=== PATIENT | female | born 1940 | race Caucasian/White ===

== ENCOUNTER → 2016-05-08 | Outpatient (CLI) | payer MEDICARE, OTHER | LOC: LAB 07:41 | DX: E11.9 Type 2 diabetes mellitus without complications (principal) ==

== ENCOUNTER → 2016-07-31 | Outpatient (CLI) | payer MEDICARE, OTHER | LOC: LAB 07:21 | DX: E11.9 Type 2 diabetes mellitus without complications (principal); E78.2 Mixed hyperlipidemia; I10 Essential (primary) hypertension ==

== ENCOUNTER → 2017-02-11 | Outpatient (CLI) | payer MEDICARE, OTHER ==
[2017-02-11 08:19] LABS: HEMATOCRIT 41.4 % (37.0-47.0); MEAN PLATELET VOLUME 10.7 fl (7.4-10.4); RED BLOOD COUNT 5.02 M/mm3 (4.10-5.30); RED CELL DISTRIBUTION WIDTH 12.9 % (11.5-14.5); WHITE BLOOD COUNT 7.8 K/mm3 (4.8-10.8)
[2017-02-11 08:28] LABS: ALBUMIN 4.2 g/dL (3.5-5.0); BUN/CREATININE RATIO 36.3 (6.0-26.0); CALCIUM 9.6 mg/dL (8.4-10.2); POTASSIUM 4.5 mmol/L (3.6-5.0); TOTAL PROTEIN 7.3 g/dL (6.3-8.2)
== END ==
LOC: LAB 07:47
PROVIDERS: Family Medicine
DX: E11.9 Type 2 diabetes mellitus without complications (principal); E78.2 Mixed hyperlipidemia; I10 Essential (primary) hypertension

== ENCOUNTER → 2017-08-12 | Outpatient (CLI) | payer MEDICARE, OTHER | LOC: LAB 07:58 | DX: E11.9 Type 2 diabetes mellitus without complications (principal) ==

== ENCOUNTER → 2017-12-24 | Outpatient (CLI) | payer MEDICARE, OTHER ==
[2017-12-24 07:59] LABS: HEMATOCRIT 34.3 % (37.0-47.0); HEMOGLOBIN 10.9 g/dL (12.5-16.0); MEAN PLATELET VOLUME 10.1 fl (7.4-10.4); RED BLOOD COUNT 4.47 M/mm3 (4.10-5.30); RED CELL DISTRIBUTION WIDTH 14.3 % (11.5-14.5); WHITE BLOOD COUNT 8.4 K/mm3 (4.8-10.8)
[2017-12-24 08:06] LABS: ALBUMIN 4.3 g/dL (3.5-5.0); CALCIUM 9.7 mg/dL (8.4-10.2); POTASSIUM 4.8 mmol/L (3.6-5.0); TOTAL BILIRUBIN 0.8 mg/dL (0.2-1.3); TOTAL PROTEIN 7.4 g/dL (6.3-8.2)
== END ==
LOC: LAB 07:35
PROVIDERS: Family Medicine
DX: E11.9 Type 2 diabetes mellitus without complications (principal); E78.2 Mixed hyperlipidemia; I10 Essential (primary) hypertension; D53.9 Nutritional anemia, unspecified

== ENCOUNTER → 2018-05-24 | Outpatient (CLI) | payer MEDICARE, OTHER | LOC: LAB 15:01 | DX: L02.519 Cutaneous abscess of unspecified hand (principal) ==

== ENCOUNTER → 2018-07-16 | Outpatient (CLI) | payer MEDICARE, OTHER ==
[2018-07-16 09:03] LABS: HEMATOCRIT 43.3 % (37.0-47.0); HEMOGLOBIN 14.4 g/dL (12.5-16.0); MEAN PLATELET VOLUME 10.6 fl (7.4-10.4); RED BLOOD COUNT 5.34 M/mm3 (4.10-5.30); RED CELL DISTRIBUTION WIDTH 13.9 % (11.5-14.5); WHITE BLOOD COUNT 6.2 K/mm3 (4.8-10.8)
[2018-07-16 09:19] LABS: ALBUMIN 4.4 g/dL (3.5-5.0); CALCIUM 8.9 mg/dL (8.4-10.2); TOTAL BILIRUBIN 0.8 mg/dL (0.2-1.3); TOTAL PROTEIN 7.4 g/dL (6.3-8.2)
== END ==
LOC: LAB 08:32
PROVIDERS: Family Medicine
DX: D53.9 Nutritional anemia, unspecified (principal); E78.2 Mixed hyperlipidemia; I10 Essential (primary) hypertension; E11.9 Type 2 diabetes mellitus without complications

== ENCOUNTER 2019-01-02 14:24 | Emergency (ER) | payer MEDICARE, OTHER ==
[~2019-01-02] VITALS: Wt 74.2 kg
[2019-01-02] MEDS ORDERED: LEVOTHYROXINE0.05 MG PO (14:44)
[2019-01-02] MEDS ORDERED: ATORVASTATIN CA20 MG PO (14:44)
[2019-01-02] MEDS ORDERED: METFORMIN HYD1000 MG PO (14:44)
[2019-01-02] MEDS ORDERED: HCTZ 25MG25 MG PO (14:44)
[2019-01-02] MEDS ORDERED: GLUCOTROL 5M5 MG/TAB PO (14:45)
[2019-01-02] MEDS ORDERED: ALENDRONATE SOD70 MG PO (14:45)
[2019-01-02] MEDS ORDERED: LISINOPRIL20 MG PO (14:45)
[2019-01-02 15:18] LABS: HEMATOCRIT 37.2 % (37.0-47.0); HEMOGLOBIN 12.8 g/dL (12.5-16.0); MEAN CELL VOLUME 80 fl (78-100); MEAN CORPUSCULAR HEMOGLOBIN 28 pg (27-31); MEAN CORPUSCULAR HGB CONC 34 g/dL (33-37); MEAN PLATELET VOLUME 10.3 fl (7.4-10.4); PLATELET COUNT 263 K/mm3 (130-400); RED BLOOD COUNT 4.63 M/mm3 (4.10-5.30); WHITE BLOOD COUNT 10.6 K/mm3 (4.8-10.8)
[2019-01-02 15:25] LABS: BAND 2 % (0-10); LYMPHOCYTE 2 % (20-51); MONOCYTE 3 % (3-10); NEUTROPHILS 92 % (42-75)
[2019-01-02 15:26] LABS: ALBUMIN 3.3 g/dL (3.4-4.8); POTASSIUM 3.8 mmol/L (3.5-5.1)
[2019-01-02 15:27] LABS: CALCIUM 8.5 mg/dL (8.3-10.5)
[2019-01-02 15:28] LABS: TOTAL PROTEIN 6.9 g/dL (6.2-8.1)
[2019-01-02 15:30] LABS: TOTAL BILIRUBIN 0.7 mg/dL (0.2-1.2)
[2019-01-02 17:13] LABS: URINE APPEARANCE HAZY; URINE BILIRUBIN NEGATIVE (NEGATIVE); URINE BLOOD NEGATIVE (NEGATIVE); URINE COLOR YELLOW; URINE GLUCOSE NEGATIVE (NEGATIVE); URINE KETONE NEGATIVE (NEGATIVE); URINE LEUKOCYTE ESTERASE NEGATIVE (NEGATIVE); URINE NITRATE NEGATIVE (NEGATIVE); URINE PROTEIN(semi-quant) TRACE mg/dL (NEGATIVE); URINE UROBILINOGEN NORMAL (NORMAL); URINE WBC 0-1 /hpf (0-3)
[2019-01-02 19:54] VITALS: BP 114/74
[2019-01-04] MEDS ORDERED: LEVAQUIN 750MG750 M1 PO (08:41)
[2019-01-04] MEDS ORDERED: FLAGYL500 M1 PO (08:42)
== END 2019-01-02 19:50 | disposition other institution (70) ==
LOC: ED 14:24
PROVIDERS: Family Medicine
DX: K63.2 Fistula of intestine (principal); E11.65 Type 2 diabetes mellitus with hyperglycemia; E11.9 Type 2 diabetes mellitus without complications; I10 Essential (primary) hypertension; Z87.442 Personal history of urinary calculi; Z90.710 Acquired absence of both cervix and uterus; Z90.49 Acquired absence of other specified parts of digestive tract; Z98.890 Other specified postprocedural states; Z79.84 Long term (current) use of oral hypoglycemic drugs
CPT/HCPCS: J3490; J7030; Q9967

== ENCOUNTER → 2019-01-31 | Outpatient (CLI) | payer MEDICARE, OTHER ==
[2019-01-04 06:14] VITALS: BP 126/67
[~2019-01-31] MED LIST: ALENDRONATE SOD70 MG PO; ATORVASTATIN CA20 MG PO; FLAGYL500 M1 PO; GLUCOTROL 5M5 MG/TAB PO; HCTZ 25MG25 MG PO; LEVAQUIN 750MG750 M1 PO; LEVOTHYROXINE0.05 MG PO; LISINOPRIL20 MG PO; METFORMIN HYD1000 MG PO
== END ==
LOC: RAD 09:23
DX: K63.2 Fistula of intestine (principal); K57.30 Diverticulosis of large intestine without perforation or abscess without bleeding; M51.36 Other intervertebral disc degeneration, lumbar region; M46.86 Other specified inflammatory spondylopathies, lumbar region
CPT/HCPCS: Q9967

== ENCOUNTER 2019-03-21 11:00 | Outpatient (RCR) | payer MEDICARE, OTHER ==
[2019-01-04 06:14] VITALS: BP 126/67
== END 2019-04-18 | disposition still patient (30) ==
LOC: PT
DX: R53.81 Other malaise (principal)

== ENCOUNTER → 2019-08-29 | Outpatient (CLI) | payer MEDICARE, OTHER ==
[2019-01-04 06:14] VITALS: BP 126/67
[2019-08-29 09:24] LABS: HEMATOCRIT 44.6 % (37.0-47.0); MEAN PLATELET VOLUME 10.4 fl (7.4-10.4); RED BLOOD COUNT 5.4 M/mm3 (4.10-5.30); RED CELL DISTRIBUTION WIDTH 13.5 % (11.5-14.5)
[2019-08-29 09:45] LABS: ALBUMIN 4.4 g/dL (3.4-4.8); POTASSIUM 4.5 mmol/L (3.5-5.1)
[2019-08-29 09:46] LABS: CALCIUM 9.9 mg/dL (8.3-10.5)
[2019-08-29 09:48] LABS: TOTAL PROTEIN 7.4 g/dL (6.2-8.1)
[2019-08-29 09:50] LABS: TOTAL BILIRUBIN 1.1 mg/dL (0.2-1.2)
== END ==
LOC: LAB 08:55
PROVIDERS: Family Medicine
DX: E11.9 Type 2 diabetes mellitus without complications (principal); I10 Essential (primary) hypertension; E78.2 Mixed hyperlipidemia

== ENCOUNTER → 2019-10-18 | Outpatient (CLI) | payer MEDICARE, OTHER ==
[2019-01-04 06:14] VITALS: BP 126/67
== END ==
LOC: AMSURD 08:30
DX: Z01.818 Encounter for other preprocedural examination (principal)

== ENCOUNTER → 2019-11-09 | Day surgery (SDC) | payer MEDICARE, OTHER ==
[2019-01-04 06:14] VITALS: BP 126/67
== END ==
LOC: MSO 07:28
DX: E11.36 Type 2 diabetes mellitus with diabetic cataract (principal); H25.811 Combined forms of age-related cataract, right eye; M19.90 Unspecified osteoarthritis, unspecified site; K21.9 Gastro-esophageal reflux disease without esophagitis; E78.5 Hyperlipidemia, unspecified; Z85.3 Personal history of malignant neoplasm of breast; Z90.710 Acquired absence of both cervix and uterus; Z79.82 Long term (current) use of aspirin; Z79.84 Long term (current) use of oral hypoglycemic drugs
CPT/HCPCS: 00142; J0171; J2250; V2632

== ENCOUNTER 2020-03-03 09:29 | Emergency (ER) | payer MEDICARE, OTHER ==
[2020-03-03] MEDS ORDERED: MELOXICAM7.5 MG PO (09:53)
[2020-03-03 10:43] LABS: EOS # 0.1 (0.04-0.40); EOS % 0.7 % (1.0-5.0); HEMATOCRIT 42.9 % (37.0-47.0); HEMOGLOBIN 14.3 g/dL (12.5-16.0); LYMPH# 1.8 (1.50-4.00); MEAN CELL VOLUME 83 fl (78-100); MEAN CORPUSCULAR HEMOGLOBIN 28 pg (27-31); MEAN CORPUSCULAR HGB CONC 33 g/dL (33-37); MEAN PLATELET VOLUME 11.5 fl (7.4-10.4); MONO # 0.8 (0.20-0.80); PLATELET COUNT 264 K/mm3 (130-400); RED CELL DISTRIBUTION WIDTH 13.3 % (11.5-14.5); WHITE BLOOD COUNT 9.7 K/mm3 (4.8-10.8)
[2020-03-03 10:59] LABS: ALBUMIN 4.3 g/dL (3.4-4.8)
[2020-03-03 11:00] LABS: CALCIUM 8.6 mg/dL (8.3-10.5)
[2020-03-03 11:03] LABS: TOTAL BILIRUBIN 0.9 mg/dL (0.2-1.2)
[2020-03-03 11:13] LABS: D-DIMER 0.77 mg/L FEU (0.15-0.50)
[2020-03-03 12:20] LABS: POTASSIUM 4.7 mmol/L (3.5-5.1)
[2020-03-03 15:52] LABS: PARTIAL THROMBOPLASTIN TIME 24.1 SECONDS (21.0-32.0); PROTHROMBIN TIME 9.7 SECONDS (9.0-12.0)
[2020-03-03 17:07] VITALS: BP 138/92
== END 2020-03-03 17:35 | disposition short-term general hospital (02) ==
LOC: ED 09:29
PROVIDERS: Family Medicine
DX: R06.00 Dyspnea, unspecified (principal); I35.0 Nonrheumatic aortic (valve) stenosis; I47.1 Supraventricular tachycardia; R74.8 Abnormal levels of other serum enzymes; E11.9 Type 2 diabetes mellitus without complications; I10 Essential (primary) hypertension; Z20.828 Contact with and (suspected) exposure to other viral communicable diseases; Z79.84 Long term (current) use of oral hypoglycemic drugs
CPT/HCPCS: J1644

== ENCOUNTER → 2020-04-27 | Outpatient (CLI) | payer MEDICARE, OTHER ==
[~2020-04-27] MED LIST changes: +MELOXICAM7.5 MG PO
[2020-04-27 12:36] LABS: HEMATOCRIT 38.5 % (37.0-47.0); HEMOGLOBIN 11.9 g/dL (12.5-16.0); RED BLOOD COUNT 4.24 M/mm3 (4.10-5.30); WHITE BLOOD COUNT 6.3 K/mm3 (4.8-10.8)
[2020-04-27 12:37] LABS: MEAN CELL VOLUME 91 fl (78-100); MEAN CORPUSCULAR HEMOGLOBIN 28 pg (27-31); MEAN CORPUSCULAR HGB CONC 31 g/dL (33-37); MEAN PLATELET VOLUME 10.3 fl (7.4-10.4); PLATELET COUNT 404 K/mm3 (130-400); RED CELL DISTRIBUTION WIDTH 16.4 % (11.5-14.5)
[2020-04-27 12:38] LABS: BAND 4 % (0-10); LYMPHOCYTE 11 % (20-51); MONOCYTE 10 % (3-10); NEUTROPHILS 73 % (42-75)
[2020-04-27 12:41] LABS: ALBUMIN 3.8 g/dL (3.4-4.8); CALCIUM 8.4 mg/dL (8.3-10.5); POTASSIUM 4.1 mmol/L (3.5-5.1); TOTAL BILIRUBIN 1.4 mg/dL (0.2-1.2); TOTAL PROTEIN 6.4 g/dL (6.2-8.1)
== END ==
LOC: LAB 11:49
PROVIDERS: Family Medicine
DX: Z86.79 Personal history of other diseases of the circulatory system (principal)

== ENCOUNTER 2020-05-01 15:38 | Emergency (ER) | payer MEDICARE, OTHER ==
[2020-05-01 16:54] LABS: HEMOGLOBIN 12.5 g/dL (12.5-16.0); MEAN CELL VOLUME 91 fl (78-100); MEAN CORPUSCULAR HEMOGLOBIN 28 pg (27-31); MEAN CORPUSCULAR HGB CONC 31 g/dL (33-37); MEAN PLATELET VOLUME 10.8 fl (7.4-10.4); PLATELET COUNT 418 K/mm3 (130-400); RED BLOOD COUNT 4.42 M/mm3 (4.10-5.30); RED CELL DISTRIBUTION WIDTH 16.4 % (11.5-14.5); WHITE BLOOD COUNT 5.5 K/mm3 (4.8-10.8)
[2020-05-01 17:02] LABS: LYMPHOCYTE 12 % (20-51); MONOCYTE 12 % (3-10); NEUTROPHILS 73 % (42-75)
[2020-05-01 17:03] LABS: POTASSIUM 4.5 mmol/L (3.5-5.1)
[2020-05-01 17:04] LABS: CALCIUM 8.1 mg/dL (8.3-10.5)
[2020-05-01 17:15] LABS: D-DIMER 0.79 mg/L FEU (0.15-0.50)
[2020-05-01 17:17] LABS: TROPONIN-I 0.22 ng/mL (<0.030)
[2020-05-01 18:10] LABS: URINE APPEARANCE CLEAR; URINE BILIRUBIN NEGATIVE (NEGATIVE); URINE BLOOD NEGATIVE (NEGATIVE); URINE COLOR YELLOW; URINE GLUCOSE NEGATIVE (NEGATIVE); URINE KETONE NEGATIVE (NEGATIVE); URINE LEUKOCYTE ESTERASE NEGATIVE (NEGATIVE); URINE NITRATE NEGATIVE (NEGATIVE); URINE PROTEIN(semi-quant) 1+ mg/dL (NEGATIVE); URINE UROBILINOGEN NORMAL (NORMAL); URINE WBC 0-1 /hpf (0-3)
[2020-05-01 19:18] VITALS: BP 90/46
== END 2020-05-01 19:45 | disposition short-term general hospital (02) ==
LOC: ED 15:38
PROVIDERS: Nurse Practitioner Family
DX: J96.00 Acute respiratory failure, unspecified whether with hypoxia or hypercapnia (principal); I35.8 Other nonrheumatic aortic valve disorders; I50.9 Heart failure, unspecified; J90 Pleural effusion, not elsewhere classified; I25.10 Atherosclerotic heart disease of native coronary artery without angina pectoris; E11.9 Type 2 diabetes mellitus without complications; E78.5 Hyperlipidemia, unspecified; E03.9 Hypothyroidism, unspecified; Z20.822 Contact with and (suspected) exposure to COVID-19; Z87.442 Personal history of urinary calculi; Z85.3 Personal history of malignant neoplasm of breast; Z79.890 Hormone replacement therapy; Z79.84 Long term (current) use of oral hypoglycemic drugs
CPT/HCPCS: J1940; J2250; J2270; J3010; J3370; J7030; J7040; J7050; J7060; Q9967

== ENCOUNTER → 2020-06-11 | Outpatient (CLI) | payer MEDICARE, OTHER ==
[~2020-06-11] MED LIST changes: +ADULT LOW DOSE81 MG PO; +CLOPIDOGREL PO; +FARXIGA10 MG PO; +LIPITOR 40MG TA40 MG PO; +NEURONTIN300 M1 PO; +NITROSTAT0.4 M1 SL; +TOPROL XL 25MG25 MG PO
[2020-06-11 11:27] LABS: EOS # 0.1 (0.04-0.40); EOS % 1.3 % (1.0-5.0); HEMATOCRIT 36.9 % (37.0-47.0); HEMOGLOBIN 11.2 g/dL (12.5-16.0); LYMPH# 1.4 (1.50-4.00); MEAN CELL VOLUME 87 fl (78-100); MEAN CORPUSCULAR HEMOGLOBIN 27 pg (27-31); MEAN CORPUSCULAR HGB CONC 30 g/dL (33-37); MEAN PLATELET VOLUME 9.6 fl (7.4-10.4); MONO # 0.8 (0.20-0.80); NEU # 7.7 (1.40-6.50); PLATELET COUNT 333 K/mm3 (130-400); RED BLOOD COUNT 4.22 M/mm3 (4.10-5.30); RED CELL DISTRIBUTION WIDTH 15.7 % (11.5-14.5)
[2020-06-11 11:31] LABS: POTASSIUM 4.9 mmol/L (3.5-5.1)
[2020-06-11 11:32] LABS: ALBUMIN 3.7 g/dL (3.4-4.8)
[2020-06-11 11:33] LABS: CALCIUM 9.6 mg/dL (8.3-10.5)
[2020-06-11 11:36] LABS: TOTAL BILIRUBIN 0.5 mg/dL (0.2-1.2); URINE APPEARANCE CLEAR; URINE BILIRUBIN NEGATIVE (NEGATIVE); URINE BLOOD NEGATIVE (NEGATIVE); URINE COLOR YELLOW; URINE GLUCOSE NEGATIVE (NEGATIVE); URINE KETONE NEGATIVE (NEGATIVE); URINE LEUKOCYTE ESTERASE NEGATIVE (NEGATIVE); URINE NITRATE NEGATIVE (NEGATIVE); URINE PROTEIN(semi-quant) NEGATIVE (NEGATIVE); URINE UROBILINOGEN NORMAL (NORMAL)
== END ==
LOC: LAB 10:57
PROVIDERS: Family Medicine
DX: N17.9 Acute kidney failure, unspecified (principal); E03.4 Atrophy of thyroid (acquired); E11.9 Type 2 diabetes mellitus without complications; D64.9 Anemia, unspecified; N39.0 Urinary tract infection, site not specified

== ENCOUNTER → 2020-06-26 | Outpatient (CLI) | payer MEDICARE, OTHER | LOC: VAS 10:31 → RAD 11:00 | DX: I73.9 Peripheral vascular disease, unspecified (principal) ==

== ENCOUNTER → 2020-07-16 | Outpatient (CLI) | payer MEDICARE, OTHER ==
[2020-07-16 12:43] LABS: EOS # 0.1 (0.04-0.40); EOS % 0.4 % (1.0-5.0); HEMATOCRIT 40.2 % (37.0-47.0); HEMOGLOBIN 12.7 g/dL (12.5-16.0); LYMPH# 1.9 (1.50-4.00); MEAN CELL VOLUME 78 fl (78-100); MEAN CORPUSCULAR HEMOGLOBIN 25 pg (27-31); MEAN CORPUSCULAR HGB CONC 32 g/dL (33-37); MEAN PLATELET VOLUME 9.6 fl (7.4-10.4); MONO # 0.9 (0.20-0.80); PLATELET COUNT 341 K/mm3 (130-400); RED BLOOD COUNT 5.17 M/mm3 (4.10-5.30); RED CELL DISTRIBUTION WIDTH 15.2 % (11.5-14.5)
[2020-07-16 12:50] LABS: ALBUMIN 3.6 g/dL (3.4-4.8)
[2020-07-16 12:52] LABS: CALCIUM 8.8 mg/dL (8.3-10.5)
[2020-07-16 12:53] LABS: TOTAL PROTEIN 7.2 g/dL (6.2-8.1)
[2020-07-16 12:55] LABS: TOTAL BILIRUBIN 0.5 mg/dL (0.2-1.2)
== END ==
LOC: VAS 09:45 → RAD 09:45 → LAB 10:24 → VAS 10:24
PROVIDERS: Family Medicine
DX: M79.672 Pain in left foot (principal)

== ENCOUNTER → 2020-08-20 | Outpatient (CLI) | payer MEDICARE, OTHER ==
[2020-08-20 13:11] LABS: ALBUMIN 3.6 g/dL (3.4-4.8); POTASSIUM 3.9 mmol/L (3.5-5.1)
[2020-08-20 13:12] LABS: CALCIUM 8.8 mg/dL (8.3-10.5)
[2020-08-20 13:14] LABS: TOTAL PROTEIN 6.7 g/dL (6.2-8.1)
[2020-08-20 13:15] LABS: TOTAL BILIRUBIN 0.4 mg/dL (0.2-1.2)
[2020-08-20 13:19] LABS: BASO # 0.02 (0.02-0.10); EOS # 0.24 (0.04-0.40); EOS % 3.6 % (1.0-5.0); HEMATOCRIT 39.2 % (37.0-47.0); HEMOGLOBIN 12.7 g/dL (12.5-16.0); LYMPH# 1.63 (1.50-4.00); MEAN CELL VOLUME 76 fl (78-100); MEAN CORPUSCULAR HEMOGLOBIN 25 pg (27-31); MEAN CORPUSCULAR HGB CONC 32 g/dL (33-37); MEAN PLATELET VOLUME 9.9 fl (7.4-10.4); MONO # 0.65 (0.20-0.80); NEU # 4.05 (1.40-6.50); PLATELET COUNT 267 K/mm3 (130-400); RED BLOOD COUNT 5.17 M/mm3 (4.10-5.30); RED CELL DISTRIBUTION WIDTH 15.7 % (11.5-14.5); WHITE BLOOD COUNT 6.6 K/mm3 (4.8-10.8)
== END ==
LOC: LAB 12:34
PROVIDERS: Family Medicine
DX: E11.9 Type 2 diabetes mellitus without complications (principal); E03.4 Atrophy of thyroid (acquired); D64.9 Anemia, unspecified; E78.5 Hyperlipidemia, unspecified; I10 Essential (primary) hypertension

== ENCOUNTER 2020-08-25 20:03 | Emergency (ER) | payer MEDICARE, OTHER ==
[~2020-08-25 20:03] MED LIST changes: -ADULT LOW DOSE81 MG PO; -CLOPIDOGREL PO; -FARXIGA10 MG PO; -LIPITOR 40MG TA40 MG PO; -NEURONTIN300 M1 PO; -NITROSTAT0.4 M1 SL; -TOPROL XL 25MG25 MG PO
[2020-08-25] MEDS ORDERED: CLOPIDOGREL PO (20:26)
[2020-08-25] MEDS ORDERED: TOPROL XL 25MG25 MG PO (20:27)
[2020-08-25] MEDS ORDERED: LIPITOR 40MG TA40 MG PO (20:28)
[2020-08-25] MEDS ORDERED: NITROSTAT0.4 M1 SL (20:28)
[2020-08-25] MEDS ORDERED: ADULT LOW DOSE81 MG PO (20:31)
[2020-08-25] MEDS ORDERED: NEURONTIN300 M1 PO (20:33)
[2020-08-25 21:00] LABS: BASO # 0.02 (0.02-0.10); EOS # 0.12 (0.04-0.40); EOS % 1.2 % (1.0-5.0); HEMATOCRIT 38.7 % (37.0-47.0); HEMOGLOBIN 12.9 g/dL (12.5-16.0); LYMPH# 1.34 (1.50-4.00); MEAN CELL VOLUME 75 fl (78-100); MEAN CORPUSCULAR HEMOGLOBIN 25 pg (27-31); MEAN CORPUSCULAR HGB CONC 33 g/dL (33-37); MEAN PLATELET VOLUME 9.5 fl (7.4-10.4); MONO # 0.72 (0.20-0.80); NEU # 7.59 (1.40-6.50); PLATELET COUNT 264 K/mm3 (130-400); RED BLOOD COUNT 5.18 M/mm3 (4.10-5.30); RED CELL DISTRIBUTION WIDTH 15.9 % (11.5-14.5); WHITE BLOOD COUNT 9.8 K/mm3 (4.8-10.8)
[2020-08-25 21:10] LABS: ALBUMIN 3.8 g/dL (3.4-4.8); POTASSIUM 4.2 mmol/L (3.5-5.1)
[2020-08-25 21:11] LABS: CALCIUM 8.6 mg/dL (8.3-10.5)
[2020-08-25 21:12] LABS: TOTAL PROTEIN 7.2 g/dL (6.2-8.1)
[2020-08-25 21:14] LABS: TOTAL BILIRUBIN 0.7 mg/dL (0.2-1.2)
[2020-08-25 21:39] LABS: PARTIAL THROMBOPLASTIN TIME 23.2 SECONDS (21.0-32.0); PROTHROMBIN TIME 9.8 SECONDS (9.0-12.0)
[2020-08-25 21:45] LABS: URINE APPEARANCE CLEAR; URINE BILIRUBIN NEGATIVE (NEGATIVE); URINE BLOOD TRACE (NEGATIVE); URINE COLOR STRAW; URINE GLUCOSE NEGATIVE (NEGATIVE); URINE KETONE NEGATIVE (NEGATIVE); URINE LEUKOCYTE ESTERASE NEGATIVE (NEGATIVE); URINE NITRATE NEGATIVE (NEGATIVE); URINE PROTEIN(semi-quant) 1+ mg/dL (NEGATIVE); URINE UROBILINOGEN NORMAL (NORMAL)
[2020-08-25 21:47] LABS: URINE WBC 0-1 /hpf (0-3)
[2020-08-25 23:27] VITALS: BP 156/82
== END 2020-08-25 23:27 | disposition short-term general hospital (02) ==
LOC: ED 20:03
PROVIDERS: Family Medicine
DX: I63.9 Cerebral infarction, unspecified (principal); E11.40 Type 2 diabetes mellitus with diabetic neuropathy, unspecified; I10 Essential (primary) hypertension; I25.10 Atherosclerotic heart disease of native coronary artery without angina pectoris; E78.5 Hyperlipidemia, unspecified; E03.9 Hypothyroidism, unspecified; Z79.890 Hormone replacement therapy; Z79.02 Long term (current) use of antithrombotics/antiplatelets; Z79.899 Other long term (current) drug therapy; Z79.82 Long term (current) use of aspirin; Z79.84 Long term (current) use of oral hypoglycemic drugs

== ENCOUNTER 2020-08-29 15:55 | Emergency (ER) | payer MEDICARE, OTHER ==
[~2020-08-29 15:55] MED LIST changes: +ADULT LOW DOSE81 MG PO; +CLOPIDOGREL PO; +LIPITOR 40MG TA40 MG PO; +NEURONTIN300 M1 PO; +NITROSTAT0.4 M1 SL; +TOPROL XL 25MG25 MG PO
[2020-08-29] MEDS ORDERED: FARXIGA10 MG PO (16:04)
[2020-08-29 16:26] LABS: BASO # 0.01 (0.02-0.10); EOS # 0.19 (0.04-0.40); EOS % 2.5 % (1.0-5.0); HEMATOCRIT 38.9 % (37.0-47.0); HEMOGLOBIN 12.5 g/dL (12.5-16.0); LYMPH# 1.65 (1.50-4.00); MEAN CELL VOLUME 76 fl (78-100); MEAN CORPUSCULAR HEMOGLOBIN 24 pg (27-31); MEAN CORPUSCULAR HGB CONC 32 g/dL (33-37); MEAN PLATELET VOLUME 9.5 fl (7.4-10.4); MONO # 0.63 (0.20-0.80); NEU # 5.09 (1.40-6.50); PLATELET COUNT 317 K/mm3 (130-400); RED BLOOD COUNT 5.15 M/mm3 (4.10-5.30); WHITE BLOOD COUNT 7.6 K/mm3 (4.8-10.8)
[2020-08-29 17:06] LABS: URINE APPEARANCE HAZY; URINE BILIRUBIN 1+ (NEGATIVE); URINE BLOOD NEGATIVE (NEGATIVE); URINE COLOR YELLOW; URINE KETONE NEGATIVE (NEGATIVE); URINE LEUKOCYTE ESTERASE NEGATIVE (NEGATIVE); URINE NITRATE NEGATIVE (NEGATIVE); URINE PROTEIN(semi-quant) NEGATIVE (NEGATIVE); URINE UROBILINOGEN NORMAL (NORMAL); URINE WBC 0-1 /hpf (0-3)
[2020-08-29 17:13] LABS: ALBUMIN 3.8 g/dL (3.4-4.8); POTASSIUM 4.3 mmol/L (3.5-5.1)
[2020-08-29 17:15] LABS: CALCIUM 8.6 mg/dL (8.3-10.5)
[2020-08-29 17:16] LABS: TOTAL PROTEIN 6.9 g/dL (6.2-8.1)
[2020-08-29 17:18] LABS: TOTAL BILIRUBIN 0.6 mg/dL (0.2-1.2)
[2020-08-29 17:41] VITALS: BP 141/78
== END 2020-08-29 17:49 | disposition home or self-care (01) ==
LOC: ED 15:55
PROVIDERS: Physician Assistant
DX: R53.81 Other malaise (principal); I25.10 Atherosclerotic heart disease of native coronary artery without angina pectoris; I10 Essential (primary) hypertension; E78.5 Hyperlipidemia, unspecified; E03.9 Hypothyroidism, unspecified; E11.40 Type 2 diabetes mellitus with diabetic neuropathy, unspecified; Z79.82 Long term (current) use of aspirin; Z79.890 Hormone replacement therapy; Z79.84 Long term (current) use of oral hypoglycemic drugs; Z79.899 Other long term (current) drug therapy; Z79.02 Long term (current) use of antithrombotics/antiplatelets

== ENCOUNTER → 2020-12-24 | Outpatient (CLI) | payer MEDICARE, OTHER ==
[~2020-12-24] MED LIST changes: +FARXIGA10 MG PO
[2020-12-24 11:32] LABS: BASO # 0.02 K/mm3 (0.02-0.10); EOS % 1.3 % (1.0-5.0); HEMATOCRIT 44.2 % (37.0-47.0); HEMOGLOBIN 14.1 g/dL (12.5-16.0); LYMPH# 1.52 K/mm3 (1.50-4.00); MEAN CELL VOLUME 82 fl (78-100); MEAN CORPUSCULAR HEMOGLOBIN 26 pg (27-31); MEAN CORPUSCULAR HGB CONC 32 g/dL (33-37); MEAN PLATELET VOLUME 10.4 fl (7.4-10.4); MONO # 0.56 K/mm3 (0.20-0.80); NEU # 5.42 K/mm3 (1.40-6.50); PLATELET COUNT 255 K/mm3 (130-400); RED BLOOD COUNT 5.38 M/mm3 (4.10-5.30); RED CELL DISTRIBUTION WIDTH 13.5 % (11.5-14.5); WHITE BLOOD COUNT 7.6 K/mm3 (4.8-10.8)
[2020-12-24 11:40] LABS: ALBUMIN 3.8 g/dL (3.4-4.8); POTASSIUM 4.2 mmol/L (3.5-5.1)
[2020-12-24 11:41] LABS: CALCIUM 9.3 mg/dL (8.3-10.5)
[2020-12-24 11:42] LABS: TOTAL PROTEIN 6.7 g/dL (6.2-8.1)
[2020-12-24 11:44] LABS: TOTAL BILIRUBIN 0.5 mg/dL (0.2-1.2)
== END ==
LOC: LAB 11:05
PROVIDERS: Family Medicine
DX: Z00.00 Encounter for general adult medical examination without abnormal findings (principal); E03.4 Atrophy of thyroid (acquired); E78.5 Hyperlipidemia, unspecified; E11.9 Type 2 diabetes mellitus without complications; E55.9 Vitamin D deficiency, unspecified

== ENCOUNTER → 2021-04-22 | Outpatient (CLI) | payer MEDICARE, OTHER ==
[2021-04-22 11:28] LABS: BASO # 0.04 K/mm3 (0.02-0.10); EOS # 0.09 K/mm3 (0.04-0.40); EOS % 0.9 % (1.0-5.0); HEMATOCRIT 45.8 % (37.0-47.0); HEMOGLOBIN 14.8 g/dL (12.5-16.0); LYMPH# 1.95 K/mm3 (1.50-4.00); MEAN CELL VOLUME 82 fl (78-100); MEAN CORPUSCULAR HEMOGLOBIN 27 pg (27-31); MEAN CORPUSCULAR HGB CONC 32 g/dL (33-37); MONO # 0.61 K/mm3 (0.20-0.80); NEU # 6.88 K/mm3 (1.40-6.50); PLATELET COUNT 310 K/mm3 (130-400); RED BLOOD COUNT 5.58 M/mm3 (4.10-5.30); RED CELL DISTRIBUTION WIDTH 14.1 % (11.5-14.5); WHITE BLOOD COUNT 9.6 K/mm3 (4.8-10.8)
[2021-04-22 12:10] LABS: POTASSIUM 4.6 mmol/L (3.5-5.1)
[2021-04-22 12:11] LABS: ALBUMIN 4.1 g/dL (3.4-4.8)
[2021-04-22 12:12] LABS: CALCIUM 9.8 mg/dL (8.3-10.5)
[2021-04-22 12:13] LABS: TOTAL PROTEIN 7.1 g/dL (6.2-8.1)
[2021-04-22 12:15] LABS: TOTAL BILIRUBIN 0.7 mg/dL (0.2-1.2)
== END ==
LOC: LAB 10:51
PROVIDERS: Family Medicine
DX: Z00.00 Encounter for general adult medical examination without abnormal findings (principal); E78.5 Hyperlipidemia, unspecified; E11.9 Type 2 diabetes mellitus without complications; E03.4 Atrophy of thyroid (acquired); E55.9 Vitamin D deficiency, unspecified

== ENCOUNTER → 2021-08-16 | Outpatient (CLI) | payer MEDICARE, OTHER ==
[2021-08-16 11:38] LABS: BASO # 0.03 K/mm3 (0.02-0.10); EOS # 0.14 K/mm3 (0.04-0.40); EOS % 1.6 % (1.0-5.0); HEMOGLOBIN 14.5 g/dL (12.5-16.0); LYMPH# 2.07 K/mm3 (1.50-4.00); MEAN CELL VOLUME 82 fl (78-100); MEAN CORPUSCULAR HEMOGLOBIN 27 pg (27-31); MEAN CORPUSCULAR HGB CONC 33 g/dL (33-37); MEAN PLATELET VOLUME 9.5 fl (7.4-10.4); NEU # 5.85 K/mm3 (1.40-6.50); PLATELET COUNT 255 K/mm3 (130-400); RED BLOOD COUNT 5.38 M/mm3 (4.10-5.30); RED CELL DISTRIBUTION WIDTH 13.8 % (11.5-14.5); WHITE BLOOD COUNT 8.8 K/mm3 (4.8-10.8)
[2021-08-16 11:40] LABS: POTASSIUM 4.4 mmol/L (3.5-5.1)
[2021-08-16 11:41] LABS: ALBUMIN 3.9 g/dL (3.4-4.8)
[2021-08-16 11:42] LABS: CALCIUM 10.1 mg/dL (8.3-10.5)
[2021-08-16 11:43] LABS: TOTAL PROTEIN 6.8 g/dL (6.2-8.1)
[2021-08-16 11:45] LABS: TOTAL BILIRUBIN 0.7 mg/dL (0.2-1.2)
== END ==
LOC: LAB 11:11
PROVIDERS: Family Medicine
DX: Z00.00 Encounter for general adult medical examination without abnormal findings (principal); E11.9 Type 2 diabetes mellitus without complications; E03.4 Atrophy of thyroid (acquired); E78.2 Mixed hyperlipidemia; E55.9 Vitamin D deficiency, unspecified

== ENCOUNTER 2022-01-16 17:18 | Emergency (ER) | payer MEDICARE, OTHER ==
[2022-01-16 17:23] VITALS: BP 129/85
[2022-01-16] MEDS ORDERED: AMOXICILLIN AND1 TA2 PO (17:40)
[2022-01-16] MEDS ORDERED: [UNRECOGNIZED DRUG - OTHER] PO (17:40)
[2022-01-16] MEDS ORDERED: PREDNISONE20 MG PO (17:40)
== END 2022-01-16 17:49 | disposition home or self-care (01) ==
LOC: ED 17:18
DX: J32.9 Chronic sinusitis, unspecified (principal); Z28.310 Unvaccinated for COVID-19

== ENCOUNTER → 2022-04-11 | Outpatient (CLI) | payer MEDICARE, OTHER ==
[~2022-04-11] MED LIST changes: +AMOXICILLIN AND1 TA2 PO; +PREDNISONE20 MG PO; +[UNRECOGNIZED DRUG - OTHER] PO
== END ==
LOC: LAB 10:56
DX: E03.4 Atrophy of thyroid (acquired) (principal); E11.9 Type 2 diabetes mellitus without complications

== ENCOUNTER → 2022-06-13 | Outpatient (CLI) | payer MEDICARE, OTHER | LOC: LAB 09:22 | DX: E11.9 Type 2 diabetes mellitus without complications (principal) ==

== ENCOUNTER → 2022-11-22 | Outpatient (CLI) | payer MEDICARE, OTHER | LOC: RAD 07:21 → VAS 07:21 → RAD 07:30 | DX: Z95.2 Presence of prosthetic heart valve (principal) ==

== ENCOUNTER → 2022-12-26 | Outpatient (CLI) | payer MEDICARE, OTHER ==
[2022-12-26 09:43] LABS: EOS # 0.08 K/mm3 (0.04-0.40); EOS % 1.4 % (1.0-5.0); HEMATOCRIT 43.3 % (37.0-47.0); LYMPH# 1.54 K/mm3 (1.50-4.00); MEAN CELL VOLUME 83 fl (78-100); MEAN CORPUSCULAR HEMOGLOBIN 27 pg (27-31); MEAN CORPUSCULAR HGB CONC 32 g/dL (33-37); MEAN PLATELET VOLUME 10.3 fl (7.4-10.4); MONO # 0.49 K/mm3 (0.20-0.80); PLATELET COUNT 240 K/mm3 (130-400); RED BLOOD COUNT 5.23 M/mm3 (4.10-5.30); RED CELL DISTRIBUTION WIDTH 14.4 % (11.5-14.5); WHITE BLOOD COUNT 5.9 K/mm3 (4.8-10.8)
[2022-12-26 09:46] LABS: ALBUMIN 3.7 g/dL (3.4-4.8)
[2022-12-26 09:47] LABS: CALCIUM 9.8 mg/dL (8.3-10.5)
[2022-12-26 09:48] LABS: TOTAL PROTEIN 6.3 g/dL (6.2-8.1)
[2022-12-26 09:50] LABS: TOTAL BILIRUBIN 0.8 mg/dL (0.2-1.2)
[2022-12-26 19:21] LABS: CREATININE OTHER SOURCE 38 mg/dL (63-166)
== END ==
LOC: LAB 09:03
PROVIDERS: Family Medicine
DX: Z00.00 Encounter for general adult medical examination without abnormal findings (principal)

== ENCOUNTER → 2023-06-08 | Outpatient (CLI) | payer MEDICARE, OTHER | LOC: LAB 11:03 | DX: E03.4 Atrophy of thyroid (acquired) (principal); E11.9 Type 2 diabetes mellitus without complications ==

== ENCOUNTER 2023-11-05 13:10 | Emergency (ER) | payer MEDICARE ==
[~2023-11-05] VITALS: Ht 152.4 cm; Wt 63.2 kg
[2023-11-05] MEDS ORDERED: Metoprolol Tartrate 1 MG/ML 5 ML VIAL IV ONE ×2 (13:45→14:15)
[2023-11-05 13:46] LABS: BASO # 0.01 K/mm3 (0.02-0.10); EOS # 0.08 K/mm3 (0.04-0.40); EOS % 0.7 % (1.0-5.0); HEMATOCRIT 46.5 % (37.0-47.0); HEMOGLOBIN 15.4 g/dL (12.5-16.0); LYMPH# 2.74 K/mm3 (1.50-4.00); MEAN CELL VOLUME 81 fl (78-100); MEAN CORPUSCULAR HEMOGLOBIN 27 pg (27-31); MEAN CORPUSCULAR HGB CONC 33 g/dL (33-37); MEAN PLATELET VOLUME 10.1 fl (7.4-10.4); MONO # 0.83 K/mm3 (0.20-0.80); NEU # 7.03 K/mm3 (1.40-6.50); PLATELET COUNT 272 K/mm3 (130-400); RED BLOOD COUNT 5.76 M/mm3 (4.10-5.30); RED CELL DISTRIBUTION WIDTH 14.1 % (11.5-14.5); WHITE BLOOD COUNT 10.7 K/mm3 (4.8-10.8)
[2023-11-05 13:51] LABS: ALBUMIN 4.1 g/dL (3.4-4.8)
[2023-11-05 13:53] LABS: CALCIUM 10.2 mg/dL (8.3-10.5)
[2023-11-05 13:54] LABS: TOTAL PROTEIN 6.8 g/dL (6.2-8.1)
[2023-11-05 13:56] LABS: TOTAL BILIRUBIN 0.9 mg/dL (0.2-1.2)
[2023-11-05] MEDS ORDERED: JARDIANCE25 MG PO (14:01)
[2023-11-05] MEDS ORDERED: OZEMPIC0.25 MG/02 SQ (14:02)
[2023-11-05] MEDS ORDERED: ATORVASTATIN CA80 MG PO (14:02)
[2023-11-05] MEDS ORDERED: VITAMIN D3125 MC2 PO (14:03)
[2023-11-05 14:12] LABS: URINE APPEARANCE CLEAR (CLEAR); URINE BILIRUBIN NEGATIVE (NEGATIVE); URINE BLOOD NEGATIVE (NEGATIVE); URINE COLOR YELLOW (YELLOW); URINE GLUCOSE 2+ (NEGATIVE); URINE KETONE NEGATIVE (NEGATIVE); URINE LEUKOCYTE ESTERASE NEGATIVE (NEGATIVE); URINE NITRATE NEGATIVE (NEGATIVE); URINE PROTEIN(semi-quant) NEGATIVE (NEGATIVE)
[2023-11-05 14:13] LABS: D-DIMER 0.59 mg/L FEU (0.15-0.50)
[2023-11-05 17:15] VITALS: BP 134/92
[2023-11-05] MEDS ORDERED: AMIODARONE IV SCH (21:40)
[2023-11-05] MEDS ORDERED: D5W IV SCH (21:40)
== END 2023-11-05 17:30 | disposition short-term general hospital (02) ==
LOC: ED 13:10
PROVIDERS: Nurse Practitioner
DX: I47.10 Supraventricular tachycardia, unspecified (principal)
CPT/HCPCS: J0282; J7060

== ENCOUNTER → 2023-11-18 | Outpatient (CLI) | payer MEDICARE ==
[~2023-11-18] MED LIST changes: +ATORVASTATIN CA80 MG PO; +JARDIANCE25 MG PO; +OZEMPIC0.25 MG/02 SQ; +VITAMIN D3125 MC2 PO
== END ==
LOC: LAB 08:46
DX: E87.6 Hypokalemia (principal)

== ENCOUNTER → 2023-12-11 | Outpatient (CLI) | payer MEDICARE ==
[2023-12-11 10:05] LABS: MAGNESIUM 0.95 mg/dL (1.60-2.60)
== END ==
LOC: LAB 09:29
PROVIDERS: Internal Medicine Cardiovascular Disease
DX: R22.40 Localized swelling, mass and lump, unspecified lower limb (principal)

== ENCOUNTER → 2023-12-30 | Outpatient (CLI) | payer MEDICARE ==
[2023-12-30 08:54] LABS: BASO # 0.01 K/mm3 (0.02-0.10); EOS # 0.08 K/mm3 (0.04-0.40); EOS % 0.8 % (1.0-5.0); HEMATOCRIT 39.2 % (37.0-47.0); HEMOGLOBIN 12.9 g/dL (12.5-16.0); LYMPH# 1.72 K/mm3 (1.50-4.00); MEAN CELL VOLUME 85 fl (78-100); MEAN CORPUSCULAR HEMOGLOBIN 28 pg (27-31); MEAN CORPUSCULAR HGB CONC 33 g/dL (33-37); MEAN PLATELET VOLUME 9.8 fl (7.4-10.4); MONO # 0.65 K/mm3 (0.20-0.80); PLATELET COUNT 327 K/mm3 (130-400); RED BLOOD COUNT 4.63 M/mm3 (4.10-5.30); RED CELL DISTRIBUTION WIDTH 16.1 % (11.5-14.5); WHITE BLOOD COUNT 9.7 K/mm3 (4.8-10.8)
[2023-12-30 08:59] LABS: ALBUMIN 3.7 g/dL (3.4-4.8)
[2023-12-30 09:00] LABS: CALCIUM 9.1 mg/dL (8.3-10.5)
[2023-12-30 09:01] LABS: TOTAL PROTEIN 6.5 g/dL (6.2-8.1)
[2023-12-30 09:03] LABS: TOTAL BILIRUBIN 0.8 mg/dL (0.2-1.2)
== END ==
LOC: LAB 08:27
PROVIDERS: Family Medicine
DX: E03.9 Hypothyroidism, unspecified (principal); I10 Essential (primary) hypertension; E78.2 Mixed hyperlipidemia; E11.9 Type 2 diabetes mellitus without complications; E55.9 Vitamin D deficiency, unspecified

== ENCOUNTER → 2024-01-11 | Outpatient (CLI) | payer MEDICARE | LOC: RAD 09:28 | DX: M17.0 Bilateral primary osteoarthritis of knee (principal); I73.9 Peripheral vascular disease, unspecified ==

== ENCOUNTER → 2024-04-15 | Outpatient (CLI) | payer MEDICARE ==
[2024-04-15 10:56] LABS: BASO # 0.02 K/mm3 (0.02-0.10); EOS # 0.08 K/mm3 (0.04-0.40); EOS % 0.8 % (1.0-5.0); HEMATOCRIT 39.7 % (37.0-47.0); HEMOGLOBIN 12.7 g/dL (12.5-16.0); LYMPH# 1.33 K/mm3 (1.50-4.00); MEAN CELL VOLUME 87 fl (78-100); MEAN CORPUSCULAR HEMOGLOBIN 28 pg (27-31); MEAN CORPUSCULAR HGB CONC 32 g/dL (33-37); MEAN PLATELET VOLUME 9.6 fl (7.4-10.4); MONO # 0.69 K/mm3 (0.20-0.80); NEU # 7.35 K/mm3 (1.40-6.50); PLATELET COUNT 304 K/mm3 (130-400); RED BLOOD COUNT 4.59 M/mm3 (4.10-5.30); RED CELL DISTRIBUTION WIDTH 13.2 % (11.5-14.5); WHITE BLOOD COUNT 9.5 K/mm3 (4.8-10.8)
[2024-04-15 11:40] LABS: ALBUMIN 3.7 g/dL (3.4-4.8)
[2024-04-15 11:41] LABS: CALCIUM 9.7 mg/dL (8.3-10.5)
[2024-04-15 11:44] LABS: TOTAL BILIRUBIN 0.5 mg/dL (0.2-1.2)
[2024-04-15 22:54] LABS: CREATININE OTHER SOURCE 53 mg/dL (63-166)
== END ==
LOC: LAB 10:41
PROVIDERS: Family Medicine
DX: E03.4 Atrophy of thyroid (acquired) (principal); I10 Essential (primary) hypertension; E11.9 Type 2 diabetes mellitus without complications; E55.9 Vitamin D deficiency, unspecified; E78.2 Mixed hyperlipidemia